=== PATIENT | female | born 1970 | race Two or more races ===

== ENCOUNTER 2023-11-25 19:56 | Emergency (ER) | payer OTHER ==
[~2023-11-25] VITALS: Ht 157.5 cm; Wt 110.2 kg
[2023-11-25] MEDS ORDERED: TOPROL XL50 M1 PO (20:16)
[2023-11-25 23:17] LABS: HEMATOCRIT 39.5 % (36.0-45.00); HEMOGLOBIN 13.2 g/dL (12.0-15.00); MEAN CELL VOLUME 79.8 fL (80.00-100.00); MEAN CORPUSCULAR HEMOGLOBIN 26.6 pg (27.00-32.0); MEAN CORPUSCULAR HGB CONC 33.3 g/dl (32.0-36.0); PLATELET COUNT 205 K/uL (150-450); RED BLOOD COUNT 4.94 M/uL (4.00-6.00); RED CELL DISTRIBUTION WIDTH 14.9 % (11.5-14.5)
== END 2023-11-25 23:58 | disposition home or self-care (01) ==
LOC: ER 19:57
PROVIDERS: General Practice
DX: J10.1 Influenza due to other identified influenza virus with other respiratory manifestations (principal); R53.81 Other malaise; Z20.822 Contact with and (suspected) exposure to COVID-19; Z88.6 Allergy status to analgesic agent